=== PATIENT | male | born 1945 | race Caucasian/White ===

== ENCOUNTER 2016-10-28 23:15 | Emergency (ER) | payer OTHER ==
[~2016-10-28] VITALS: Ht 175.3 cm; Wt 85.0 kg
[2016-10-28 23:30] VITALS: BP 132/75; PULSE 135; RESP 18; TEMP 100.8; O2SAT 95
[2016-10-28] MEDS ORDERED: SODIUM CHLOR 0.9% 1000 ML INJ 700 ML IV ONE (23:39)
[2016-10-28] MEDS ORDERED: SODIUM CHLOR 0.9% 1000 ML INJ 1,000 ML IV ONE ×2 (23:39)
[2016-10-28] MEDS ORDERED: RAMI10CA PO (23:43)
--- NOTE | 2016-10-28 23:45 | PD ---
HPI Chief Complaint: Fever Time Seen by Provider: 23:30 Travel History International Travel<30 days: No Contact w/Intl Traveler<30days: No Traveled to known affect area: No History of Present Illness HPI The patient is a 70-year-old male that complains of shaking beginning yesterday morning. He called the ambulance because of shaking. He does have some myalgias. He denies any cough, chest pain or shortness of breath. He does have nausea without vomiting or diarrhea. He does have some slight dysuria and states he has to urinate every 4 hours. He denies any history of diabetes. He does feel dehydrated. He denies any ear pain or sore throat. 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) Chemotherapy: Yes Diminished Hearing: No Glaucoma: Yes Hypertension: Yes Tetanus Vaccination: > 5 Years Influenza Vaccination: Yes Past Surgical History Abdominal Surgery: Yes (LIVER CA/PARTIAL REMOVED) Cholecystectomy: Yes Social History Alcohol Use: Yes (2 BEER DAILY) Tobacco Use: No Substance Use: No Allergies-Medications (Allergen,Severity, Reaction): Coded Allergies: No Known Allergies (Unverified , 10/28/16) Reported Meds & Prescriptions Reported Meds & Active Scripts Active Reported Ramipril 10 Mg Cap 10 Mg PO DAILY Review of Systems Except as stated in HPI: all other systems reviewed are Neg Physical Exam Narrative GENERAL: The patient appears moderately dehydrated but is alert, oriented 3 in no apparent distress. His vital signs show temperature 100.8 with pulse rate of 135 but are otherwise normal. SKIN: Focused skin assessment warm/dry. HEAD: Atraumatic. Normocephalic. EYES: Pupils equal and round. No scleral icterus. No injection or drainage. ENT: No nasal bleeding or discharge. Mucous membranes pink and moist. NECK: Trachea midline. No JVD. CARDIOVASCULAR: Regular rate and rhythm. No murmur appreciated. RESPIRATORY: No accessory muscle use. Clear to auscultation. Breath sounds equal bilaterally. GASTROINTESTINAL: Abdomen soft, non-tender, nondistended. Hepatic and splenic margins not palpable. MUSCULOSKELETAL: No obvious deformities. No clubbing. No cyanosis. No edema. NEUROLOGICAL: Awake and alert. No obvious cranial nerve deficits. Motor grossly within normal limits. Normal speech. PSYCHIATRIC: Appropriate mood and affect; insight and judgment normal. Data Data Last Documented VS Vital Signs Date Time Temp Pulse Resp B/P Pulse Ox O2 Delivery O2 Flow Rate FiO2 10/29/16 00:20 93 Room Air 10/29/16 00:20 98.4 119 18 117/66 Orders Complete Blood Count With Diff (10/28/16 23:39) Comprehensive Metabolic Panel (10/28/16 23:39) Lactic Acid Sepsis Protocol (10/28/16 23:39) Magnesium (Mg) (10/28/16 23:39) Urinalysis - C+S If Indicated (10/28/16 23:39) Influenzae A/B Antigen (10/28/16 23:39) Blood Culture (10/28/16 23:39) Chest, Pa & Lat (10/28/16 23:39) Blood Glucose (10/28/16 23:39) Ecg Monitoring (10/28/16 23:39) Iv Access Insert/Monitor (10/28/16 23:39) Oximetry (10/28/16 23:39) Oxygen Administration (10/28/16 23:39) Sodium Chlor 0.9% 1000 Ml Inj (Ns 1000 M (10/28/16 23:39) Sodium Chlor 0.9% 1000 Ml Inj (Ns 1000 M (10/28/16 23:39) Sodium Chlor 0.9% 1000 Ml Inj (Ns 1000 M (10/28/16 23:39) Ondansetron Inj (Zofran Inj) (10/29/16 00:00) Labs Laboratory Tests Test 10/28/16 23:50 White Blood Count 4.5 TH/MM3 Red Blood Count 4.71 MIL/MM3 Hemoglobin 14.9 GM/DL Hematocrit 43.5 % Mean Corpuscular Volume 92.2 FL Mean Corpuscular Hemoglobin 31.5 PG Mean Corpuscular Hemoglobin 34.2 % Concent Red Cell Distribution Width 11.4 % Platelet Count 159 TH/MM3 Mean Platelet Volume 8.1 FL Neutrophils (%) (Auto) 91.9 % Lymphocytes (%) (Auto) 6.0 % Monocytes (%) (Auto) 0.7 % Eosinophils (%) (Auto) 0.1 % Basophils (%) (Auto) 1.3 % Neutrophils # (Auto) 4.1 TH/MM3 Lymphocytes # (Auto) 0.3 TH/MM3 Monocytes # (Auto) 0.0 TH/MM3 Eosinophils # (Auto) 0.0 TH/MM3 Basophils # (Auto) 0.1 TH/MM3 CBC Comment AUTO DIFF Urine pH 5.5 Urine Protein 100 mg/dL Urine Glucose (UA) NEG mg/dL Urine Ketones NEG mg/dL Urine Occult Blood SMALL Urine Nitrite NEG Urine Bilirubin NEG Urine Leukocyte Esterase TRACE Sodium Level 140 MEQ/L Potassium Level 3.6 MEQ/L Chloride Level 106 MEQ/L Carbon Dioxide Level 21.2 MEQ/L Anion Gap 13 MEQ/L Blood Urea Nitrogen 23 MG/DL Creatinine 1.20 MG/DL Estimat Glomerular Filtration 60 ML/MIN Rate Random Glucose 139 MG/DL Lactic Acid Level 1.9 mmol/L Calcium Level 9.0 MG/DL Magnesium Level 1.9 MG/DL Total Bilirubin 1.7 MG/DL Aspartate Amino Transf 25 U/L (AST/SGOT) Alanine Aminotransferase 28 U/L (ALT/SGPT) Alkaline Phosphatase 131 U/L Total Protein 7.5 GM/DL Albumin 3.4 GM/DL MDM Medical Decision Making Medical Screen Exam Complete: Yes Emergency Medical Condition: Yes Medical Record Reviewed: Yes Interpretation(s) The influenza A/B antigen is negative for flu a and flu B antigen. The urine shows small occult blood and trace leukocyte esterase, 100 protein, specific gravity 1.026, moderate turbidity and 25-49 white cells with occasional white cell clumping's and many bacteria and culture is indicated. Also noted in the urine are 3-5 fine granular casts. The CBC shows a white count of 4500 but is otherwise normal. The complete metabolic profile shows a BUN of 23, GFR of 60, glucose 139 with total bilirubin of 1.7 and alkaline phosphatase 131 but is otherwise normal. The lactic acid is 1.9. Differential Diagnosis Pyelonephritis, cystitis, sepsis, viral infection, flu syndrome, electrolyte disorder, dehydration, renal insufficiency, hypo-/hyperglycemia Narrative Course The patient appears to have pyelonephritis. He is also dehydrated. He has not exhibited any shaking spells since he has been here. The urine is very positive for infection and the granular casts suggest pyelonephritis. His high urine specific gravity, elevated BUN and clinical appearance also suggest dehydration. The patient has a relatively low white count and appears to be a candidate for home treatment. He strongly wishes to go home and tried at home first without being admitted. Procedures EKG Prior to Arrival: No Sepsis Criteria SIRS Criteria (2 or more): Temp > 100.9 or < 96.8, Heart rate over 90 Diagnosis Primary Impression: Pyelonephritis Additional Impression: Mild dehydration Additional Instructions: As we discussed, follow-up with her primary care physician as soon as possible. Drink plenty of liquids, it is important to have a good urine flow through your kidneys to fight off of a urine infection. The Phenergan is for nausea, it is one every 6 hours. Med/Other Pt SpecificInfo: Prescription(s) given Scripts Promethazine (Phenergan)25 Mg Tab25 Mg PO Q6H PRN (Nausea/Vomiting) #30 TAB Ref 0 Prov:Jose Mccabe MD 10/29/16 Nitrofurantoin Monohydrate Macrocrystals (Macrobid)100 Mg [id number] Mg PO BID 10 Days Ref 0 Prov:Jose Mccabe MD 10/29/16 Disposition: 01 DISCHARGE HOME Condition: Stable Jose Mccabe MD Oct 28, 2016 23:45
[2016-10-29] VITALS (7 sets, daily range): BP systolic 91–121; BP diastolic 58–74; PULSE 109–119; RESP 18; TEMP 98.4–98.7; O2SAT 93–95
[2016-10-29] MEDS ORDERED: ONDANSETRON HCL 4 MG/2 ML VIAL IV ONE
[2016-10-29 00:12] LABS: BLOOD, URINE SMALL (NEG); GLUCOSE,URINE NEG (NEG); KETONE, URINE NEG (NEG); NITRITE,URINE NEG (NEG); PH, URINE 5.5 (5.0-8.5)
--- NOTE | 2016-10-29 00:12 | RADHPO ---
EXAM DATE/TIME: 10/28/2016 23:55 [facility] COMPARISON: No previous studies available for comparison. INDICATIONS : Fever. MEDICAL HISTORY : None. SURGICAL HISTORY : None. ENCOUNTER: Initial ACUITY: 1 day PAIN SCORE: 0/10 LOCATION: Bilateral chest FINDINGS: PA and lateral views of the chest demonstrate the lungs to be symmetrically aerated without evidence of mass, infiltrate or effusion. The cardiomediastinal contours are unremarkable. Osseous structure s are intact. CONCLUSION: Normal examination. Large flowing osteophytes of the thoracic spine. Clifton Acosta MD on October 29, 2016 at 0:10 Board Certified Radiologist. This report was verified electronically.
[2016-10-29 00:16] LABS: CHLORIDE 106 MEQ/L (98-107); POTASSIUM 3.6 MEQ/L (3.5-5.1); SODIUM (NA) 140 MEQ/L (136-145)
[2016-10-29 00:18] LABS: AUTOMATED NEUTROPHIL # 4.1 TH/MM3 (1.8-7.7); BASOPHIL # 0.1 TH/MM3 (0-0.2); BASOPHIL % 1.3 % (0.0-2.0); EOSINOPHIL % 0.1 % (0.0-4.0); HEMATOCRIT 43.5 % (39.0-51.0); LYMPHOCYTE # 0.3 TH/MM3 (1.0-4.8); MEAN CELL VOLUME 92.2 FL (80.0-100.0); MEAN CORPUSCULAR HEMOGLOBIN 31.5 PG (27.0-34.0); MEAN CORPUSCULAR HGB CONC 34.2 % (32.0-36.0); MONO % 0.7 % (0.0-8.0); NEUT % 91.9 % (16.0-70.0); PLATELET COUNT 159 TH/MM3 (150-450); RED BLOOD COUNT 4.71 MIL/MM3 (4.50-5.90); RED CELL DISTRIBUTION WIDTH 11.4 % (11.6-17.2); WHITE BLOOD COUNT 4.5 TH/MM3 (4.0-11.0)
[2016-10-29 00:20] LABS: ANION GAP 13 MEQ/L (5-15); BICARBONATE 21.2 MEQ/L (21.0-32.0); BLOOD UREA NITROGEN 23 MG/DL (7-18); MAGNESIUM 1.9 MG/DL (1.5-2.5)
[2016-10-29 00:23] LABS: ALT (GPT) 28 U/L (12-78); AST (GOT) 25 U/L (15-37); GLOMERULAR FILTRATION RATE 60 ML/MIN (>89); HEMO FLAGS AUTO DIFF
[2016-10-29 00:25] LABS: TOTAL BILIRUBIN ADULT 1.7 MG/DL (0.2-1.0)
[2016-10-29 00:26] LABS: ALKALINE PHOSPHATASE 131 U/L (45-117)
[2016-10-29 00:39] LABS: URINE COLOR AMBER (YELLW/STRAW)
[2016-10-29 00:40] LABS: BACTERIA, URINE MANY /hpf; SQUAMOUS EPITHELIAL CELL URINE 0-5 /hpf (0-5)
[2016-10-29 00:42] LABS: COMMENT (UR) CULTURE INDICATED; CULTURE IF INDICATED CULTURE INDICATED; MUCUS URINE OCC /lpf (OCC)
[2016-10-29] MEDS ORDERED: MACR100C2 PO (00:51)
[2016-10-29] MEDS ORDERED: PROM25TA5 PO (00:51)
[2016-10-29 00:56] LABS: PLATELET ESTIMATE SMEAR NORMAL (NORMAL); PLATELET MORPHOLOGY NORMAL (NORMAL); SCAN/DIFF AUTO DIFF CONFIRMED
[2016-10-29] MEDS ORDERED: cefTRIAXone INJ 1,000 MG in SODIUM CHLORIDE 0.9% INJ 100 ML IV ONE (01:00)
[2016-10-29] MEDS ORDERED: NITROFURANTOIN MONOHYD MACROCR 100 MG CAP PO ONE (01:15)
== END 2016-10-29 03:50 | disposition home or self-care (01) ==
LOC: PHED 23:15
DX: I10 Essential (primary) hypertension (principal); N12 Tubulo-interstitial nephritis, not specified as acute or chronic; E86.0 Dehydration; R11.0 Nausea; B96.20 Unspecified Escherichia coli [E. coli] as the cause of diseases classified elsewhere
CPT/HCPCS: 71020; 80053; 81001; 83605; 83735; 85025; 87040; 87077; 87086; 87186; 87205; 87804; 96361; 96365; 99285; J0696; J2405; J7030